=== PATIENT | male | born 1975 | race Hispanic/Latino ===

== ENCOUNTER 2018-01-14 15:09 | Emergency (ER) | payer BC ==
--- NOTE | 2018-01-14 18:02 | XRay Report ---
FINAL REPORT PROCEDURE: XR FEMUR 2+V RT TECHNIQUE: RIGHT femur radiographs, AP and lateral views. HISTORY: leg injury. Pain. COMPARISON: No prior studies are available for comparison. FINDINGS: Bone density appears normal. No fractures are seen. Cortical and trabecular pattern appear normal. No radiopaque foreign bodies are seen. IMPRESSION: Negative examination
--- NOTE | 2018-01-14 18:03 | XRay Report ---
FINAL REPORT PROCEDURE: XR TIBIA FIBULA 2V RT TECHNIQUE: RIGHT tibia and fibula radiographs, AP and lateral views. CPT 64562 HISTORY: leg injury. Pain. COMPARISON: No prior studies are available for comparison. FINDINGS: The cortical and trabecular pattern of the tibia and fibula appear normal. No fractures are seen. No radiopaque foreign bodies are identified. There appears to be mild soft tissue swelling anterior lateral aspect lower leg. IMPRESSION: Mild soft tissue swelling suspected otherwise negative exam.
--- NOTE | 2018-01-14 18:09 | XRay Report ---
FINAL REPORT PROCEDURE: XR ANKLE 3+V RT TECHNIQUE: RIGHT ankle radiographs, AP, lateral, and oblique views. CPT 04757 HISTORY: leg injury COMPARISON: No prior studies are available for comparison. FINDINGS: Mild soft tissue swelling is seen medially and laterally. There is a lucency seen in the talar dome medially extending over approximately 6.3 x 1.7 millimeters consistent with a small osteochondral lesion. Talar dome otherwise is intact. On image 5 series 1, the oblique image there is a subtle lucency projecting transversely through the distal fibula at the level of the tibiotalar joint space. This could be residual artifact from previous growth plate. I cannot exclude a nondisplaced hairline fracture. Correlation with physical exam is recommended. No other osseous abnormalities are seen. Minimal calcaneal spur seen at the Achilles tendon insertion site. Subtle nonspecific soft tissue density seen lateral to the distal fibula IMPRESSION: Small osteochondral lesion medial aspect talar dome as described. Mild soft tissue swelling visualized medial and laterally. Subtle lucency distal fibula as described which may be an artifact from old residual growth plate. I cannot exclude a nondisplaced hairline fracture. Subtle nonspecific soft tissue density seen lateral to the distal fibula..
--- NOTE | 2018-01-14 22:24 | Emergency Department Report ---
HPI - General Chief Complaint: Extremity Injury, Lower Time Seen by Provider: 01/14/18 21:56 ED Past Medical Hx - Past Medical History Previous Medical History?: No - Surgical History Past Surgical History?: No - Social History Smoking Status: Never Smoker Substance Use Type: None ED Review of Systems ROS: Stated complaint: POSSIBLE BROKEN LEG Other details as noted in HPI Physical Exam - Physical Exam Vital Signs: Vital Signs 01/14/18 16:17 Temperature 99 F Pulse Rate 120 H Respiratory 16 Rate Blood Pressure 142/94 O2 Sat by Pulse 97 Oximetry ED Course Vital Signs 01/14/18 16:17 Temperature 99 F Pulse Rate 120 H Respiratory 16 Rate Blood Pressure 142/94 O2 Sat by Pulse 97 Oximetry Critical care attestation.: If time is entered above; I have spent that time in minutes in the direct care of this critically ill patient, excluding procedure time. ED Disposition Condition: Stable Referrals: PRIMARY CARE [Primary Care Provider] - 3-5 Days
[2018-01-14] MEDS ORDERED: BOOSTRIX IM ONE (22:26)
[2018-01-14 23:18] VITALS: BP 132/84
== END 2018-01-14 23:13 | disposition home or self-care (01) ==
LOC: ED 15:09
DX: S89.91XA Unspecified injury of right lower leg, initial encounter (principal); X58.XXXA Exposure to other specified factors, initial encounter; Y93.89 Activity, other specified; Y92.89 Other specified places as the place of occurrence of the external cause; Y99.8 Other external cause status
CPT/HCPCS: 90471; 90715; 93005; 93010; 99283